=== PATIENT | female | born 1950 | race Caucasian/White ===

== ENCOUNTER 2025-03-27 09:48 | Emergency (ER) | payer MEDICARE, OTHER ==
[~2025-03-27] VITALS: Ht 162.6 cm; Wt 73.0 kg
[2025-03-27 10:04] VITALS: TEMP 98.3
--- NOTE | 2025-03-27 10:45 | Physician Documentation ---
History of Present Illness ~ Chief Complaint: Ingestion Error Stated Complaint: "DOUBLED BP MEDICATION" Time Seen by MD: 10:14 OK to notify your PCP?: Yes Primary Medical Doctor: soumya goodman Source: patient Mode of Arrival: POV Exam Limitations: no limitations HPI 74-year-old female who is here due to accidentally taking double of her metoprolol at 9:30 a.m. this morning. She states that she grabbed her bottle of metoprolol and took 100 mg of her metoprolol succinate and then she did not realize but she grabbed her bottle of metoprolol tartrate and took 100 mg of this as well. Then when she looked at the bottle she realized that she had made an air as she is only supposed to be taking metoprolol succinate. Patient is also on amlodipine, hydrochlorothiazide and losartan. Patient denies any sympto ms but she states when she realized what she did she immediately came to the emergency room. Medication Reconciliation Allergies: Uncoded Allergies: PENICILLIN (Allergy, 06/02/12) Past Medical History Past Medical History: High Cholesterol, Hypertension Other Past Family History: Colon cancer Review of Systems All Other Systems at this time: Reviewed and Negative Physical Exam Vital Signs: Temperature: 98.3, Source: Temporal, Heart Rate: 70, Respiratory Rate: 15, BP: 218/120, Pulse Oximetry: 98, Weight: 73.050 Physical Exam General Appearance: Alert, WD/WN. NAD. HEENT: NCAT, PERRL, EOMI. Neck: Supple, trachea midline. Cardiovascular: RRR. No m/r/g. Lungs: CTAB. Breathing unlabored Extremities: Normal inspection. No edema. Skin: Warm/dry, normal color Neurological: Alert and oriented x4, normal gait. Psychiatric: Affect congruent with mood. Progress Results/Orders Results/Orders Vital Signs 03/27/25 10:04 Temp 98.3 Pulse 70 Resp 15 B/P (MAP) 218/120 Pulse Ox 98 Medical Decision Making Differential Dx:Considerations: Include: Alcohol abuse, Anxiety, Bipolar disorder, Conversion disorder, Delirium, Depression, Drug Overdose-Accidental, Drug Overdose-Intentional, Encephalopathy, Hallucinations, Homicidal, Liver failure, Panic disorder, Personality disorder, Renal failure, Respiratory failure, Schizophrenia, Substance abuse, Suicidal attempt, Suidical gesture, Other Additional Comment The metoprolol tartrate is an immediate release medication and peaks within an hour and thus she is already experiencing the peak effect of this. The metoprolol succinate will peak around 7 hour jose. Patient is asymptomatic and heart rate is over 60. Considering these medications peak at different times and she has already had the peak of her metoprolol tartrate I did not feel it was necessary to monitor her for the next 7 hours. Departure Time of Disposition: 10:41 Disposition: 01 HOME / SELF CARE / HOMELESS Impression: Primary Impression: Accidental medication error Qualified Codes: T50.901A - Poisoning by unspecified drugs, medicaments and biological substances, accidental (unintentional), initial encounter Additional Impression: Hypertension Qualified Codes: I10 - Essential (primary) hypertension Condition: Stable Discharge Instructions: Overdose, Accidental Additional Instructions: Metoprolol tartrate is an immediate release medication and peaks within an hour this she is already experiencing the peak effect of this. The metoprolol succinate will peak around 7 hour jose. Patient is asymptomatic. Considering these medications peak at different times and she has already had the peak of her metoprolol tartrate I did not feel it was necessary to monitor her for the next 7 hours. WE DISCUSSED WAYS TO PREVENT THIS IN THE FUTURE AND YOU AGREED TO START USING A PILL ORGANIZER/BOX Referrals: NO PRIMARY CARE PROVIDER (PCP) Prescriptions No Active Prescriptions or Reported Meds Education Educated: Patient, Family Educated regarding: diagnosis, treatment, need for follow up Signature Scribe Signature: Justine Attestation: TING WOLFF Mar 27, 2025 10:45
[2025-03-27 10:52] VITALS: BP 171/86; PULSE 63; RESP 17; O2SAT 97
== END 2025-03-27 10:54 | disposition home or self-care (01) ==
LOC: ER 09:48
DX: T44.7X1A Poisoning by beta-adrenoreceptor antagonists, accidental (unintentional), initial encounter (principal); E78.00 Pure hypercholesterolemia, unspecified; I10 Essential (primary) hypertension; Y92.89 Other specified places as the place of occurrence of the external cause
CPT/HCPCS: 99282

== ENCOUNTER 2025-06-27 10:10 | Inpatient (IN) | payer MEDICARE, OTHER ==
[~2025-06-27] VITALS: Ht 162.6 cm; Wt 64.0 kg
--- NOTE | 2025-06-27 10:23 | Physician Documentation ---
History of Present Illness General Stated Complaint: DIZZINESS Time Seen by MD: 10:23 Primary Medical Doctor: soumya goodman History of Present Illness Initial Comments 74-year-old female complains of significant dizziness whenever she opens her eyes. The patient states symptoms started 830 this morning. The patient denies any weakness. Patient denies any history of strokes. The patient states she has been nauseous with this as well. Patient states she was in her normal state of health when this occurred. Patient's symptoms are moderate and persistent. Patient denies a headache and she denies any neck pain. Patient states she had some slight chest discomfort earlier she notes states her chest pain has now resolved. Medication Reconciliation Allergies: Coded Allergies: Penicillins (Verified Allergy, Intermediate, RASH, 06/27/25) Scheduled Amlodipine Besylate (Amlodipine Besylate), 1 TAB PO DAILY, (Reported) Atorvastatin Calcium (Atorvastatin Calcium), 1 TAB PO DAILY Levothyroxine Sodium (Levothyroxine Sodium), 175 MCG PO DAILY Lisinopril/Hydrochlorothiazide (Lisinopril-Hctz 20-12.5 mg Tab), 1 TAB PO DAILY, (Reported) Meclizine HCl (Meclizine HCl), 25 MG PO TID Metoprolol Tartrate* (Metoprolol Tartrate*), 1 TAB PO BID, (Reported) Scheduled PRN Ondansetron HCl (Ondansetron HCl), 1 TAB PO Q4HPRN PRN for nausea/vomiting Discontinued Medications Atorvastatin Calcium (Atorvastatin Calcium), 1 TAB PO QAM, (Reported) Levothyroxine Sodium (Levothyroxine Sodium), 1 TAB PO DAILY, (Reported) Past Medical History Past Medical History: High Cholesterol, Hypertension Other Past Family History: Colon cancer Review of Systems All Other Systems at this time: Reviewed and Negative Physical Exam Physical Exam Physical Exam VITALS: Reviewed and as above. GENERAL: Alert, no apparent distress. HEENT: Normocephalic, atraumatic, PERRL, EOMI, dry mucosa, no erythema RESPIRATORY: Lungs clear, normal breath sounds, no respiratory distress. CHEST: No accessory muscle use, no retractions CV: Regular rate, rhythm, no edema, no murmur, No: JVD GI: Soft, non-tender, bowels sounds present, no rebound, guarding, or rigidity BACK: No CVA tenderness, or swelling MUSCULOSKELETAL: No deformities, no edema SKIN: Warm and dry, no rash NEURO: Oriented x4, No motor or sensory deficit patient has non fatiguing right beating nystagmus extended neuro exam was unremarkable she has 5/5 strength in cerebellar functioning PSYCH: Normal mood and affect, no agitation Progress Progress Note . Patient: NILA QUIÑONES Medical Record: [id number] [facility] : 1950, Age: 74 Sex: Female Location: ER Patient Status: REG ER Service Date/Time: 06/27/251023 Ordering Physician: MONTANA WEBB MD Exam: CHEST,SINGLE VIEW CHEST RADIOGRAPH Indication: CP Technique: Single frontal view of the chest was obtained COMPARISON: None FINDINGS: Lines and Tubes: None Lungs: Clear Pleura: No effusion. No pneumothorax. Cardiomediastinal contours: Unremarkable Bones: Unremarkable IMPRESSION: 1. No acute disease. Vascular calcification of the aortic arch. Electronically Signed by:PENG PUENTES MD Date & Time: 06/27/251044 Dictated by: PENG PUENTES MD Dictation date and time: 06/27/251044 Primary Care Provider: NO PRIMARY CARE PROVIDER cc: MONTANA WEBB MD ~ Patient: NILA QUIÑONES Medical Record: [id number] [facility] : 1950, Age: 74 Sex: Female Location: ER Patient Status: REG ER Service Date/Time: 06/27/25 Ordering Physician: MONTANA WEBB MD Exam: CTA NECK/HEAD CLINICAL HISTORY: dizziness TECHNIQUE: CT angiogram of the head and neck was performed without and with intravenous contrast. 3D MIP reconstructed images were created and archived on the PACS system. This exam was performed according to our departmental dose optimization program. Up-to-date CT equipment and radiation dose reduction techniques are utilized as appropriate. CTDI 27 DLP 14 COMPARISON: CT CT HEAD on DOS: 06/27/25 FINDINGS: CTA NECK: The common carotid, internal carotid, and vertebral arteries are patent with no evidence for high grade narrowing, occlusion, and dissection. There is no significant narrowing at the carotid bulbs per NASCET criteria. CTA HEAD: The anterior and posterior intracranial circulations are intact with no evidence for high grade narrowing, occlusion, or aneurysm. There is a right posterior communicating artery. IMPRESSION: No acute CTA abnormality of the major head and neck arterial vasculature. Electronically Signed by:TAMIA TORO MD Date & Time: 06/27/25 114 Dictated by: TAMIA TORO MD Dictation date and time: 06/27/25 1143 Primary Care Provider: NO PRIMARY CARE PROVIDER cc: MONTANA WEBB MD ~ Results/Orders Results/Orders Orders - MONTANA WEBB MD Chest,Single View (06/27/25 10:24) Saline Lock (06/27/25 10:24) Monitor (06/27/25 10:24) Ct Head (06/27/25 ) Cta Neck/Head (06/27/25 ) Page Hospitalist (06/27/25 12:09) Fill Out Med Reconciliation (06/27/25 12:09) Completed Orders - MONTANA WEBB MD Cbc/Diff (06/27/25 10:24) MG (06/27/25 10:24) Electrocardiogram (06/27/25 10:24) PBNP (06/27/25 10:24) Chest,Single View (06/27/25 10:24) BMP (06/27/25 10:24) Hs Troponin I W Calculations (06/27/25 10:24) Hs Troponin I W Calculations (06/27/25 12:24) Hs Troponin I W Calculations (06/27/25 13:24) Diazepam Inj (Valium Inj) (06/27/25 10:35) Ondansetron Inj. (Zofran 4mg/2ml Vial) (06/27/25 10:35) Meclizine Tablets (Antivert Tablet) (06/27/25 10:35) Ct Head (06/27/25 ) Cta Neck/Head (06/27/25 ) Iohexol 350mg/Ml 100ml (Omnipaque 350mg/ (06/27/25 10:44) Potassium Cl Sr Tablet (K-Dur Tablet) (06/27/25 12:05) Potassium Cl Sr Tablet (K-Dur Tablet) (06/27/25 12:05) Magnesium Cl Er Tablet (Slow-Mag Tablet) (06/27/25 12:05) Magnesium Sulf-Water 2g/50ml (Magnesium (06/27/25 12:05) Magnesium Sulf-Water 4g/100ml (Magnesium (06/27/25 12:05) Potassium Cl 40meq/1/2ns 520ml ([place] (06/27/25 12:05) K And/Or Mag Replacement (K And/Or Mag R (06/27/25 20:00) Hgb A1c (06/27/25 10:34) Lipid Panel (06/27/25 10:34) PHOS (06/27/25 10:34) Vital Signs 06/27/25 06/27/25 06/27/25 06/27/25 10:15 10:30 10:46 10:55 Temp 97.7 Pulse 77 74 Resp 16 15 16 11 B/P (MAP) 178/81 185/96 (125) Pulse Ox 100 97 O2 Flow Rate 0 Laboratory Tests Test 06/27/25 10:34 White Blood Count 5.4 Red Blood Count 4.37 Hemoglobin 13.6 Hematocrit 39.5 Mean Corpuscular Volume 90.4 Mean Corpuscular Hemoglobin 31.0 Mean Corpuscular Hemoglobin Concent 34.4 Red Cell Distribution Width 13.5 Platelet Count 354 Mean Platelet Volume 7.7 Neutrophils (%) (Auto) 51.5 Lymphocytes (%) (Auto) 40.8 Monocytes (%) (Auto) 3.4 Eosinophils (%) (Auto) 3.5 Basophils (%) (Auto) 0.8 Neutrophils # (Auto) 2.8 Lymphocytes # (Auto) 2.2 Monocytes # (Auto) 0.2 Eosinophils # (Auto) 0.2 Basophils # (Auto) 0.0 CBC Comment Prothrombin Time 9.8 INR International Normalized Ratio 1.0 Activated Partial Thromboplast Time 22 Coagulation Comments Sodium Level 140 Potassium Level 2.9 *L Chloride Level 103 Carbon Dioxide Level 24.2 Anion Gap 13 Blood Urea Nitrogen 17 Creatinine 0.86 Estimated GFR/1.73 m2 65 BUN/Creatinine Ratio 19.8 Glucose Level 165 H Hemoglobin A1c 5.7 Calcium Level 9.2 Phosphorus Level 1.8 L Magnesium Level 1.6 Troponin I High Sensitivity 5 Pro-B-Type Natriuretic Peptide 32 Albumin 3.6 Triglycerides Level 120 Cholesterol Level 237 H LDL Cholesterol 138 H HDL Cholesterol 63 H Cholesterol/HDL Ratio 3.8 Chemistry Comments Medical Decision Making Findings The patient's EKG was interpreted by me as showing a sinus rhythm with a normal axis and a right bundle branch block and nonspecific ST abnormalities. The patient's rate was 72 beats per minute. The patient's EKG was interpreted at 10:19 a.m.. The patient presented with significant non fatiguing nystagmus, and elevated blood pressure. Do this patient has a CT CTA of the head which did not show any significant polyp pathology did neurology was also consulted they are recommending patient be admitted for her completion of the stroke workup patient's symptoms have improved. There were no other focal neurologic f indings. The patient's pulse oximetry was interpreted as normal and adequate the patient patient's prior hospitalizations have been reviewed. The patient's tube builder was interpreted as a sinus rhythm the patient was discussed with the hospitalist as well as the neurologist patient will be admitted Departure Admitted to Inpatient Unit: to hospitalist Impression: Primary Impression: Dizziness Additional Impressions: Vertigo Hypertension Qualified Codes: I10 - Essential (primary) hypertension Hypokalemia Referrals: NO PRIMARY CARE PROVIDER (PCP) Prescriptions Ondansetron HCl (Ondansetron HCl) 4 Mg Tablet 1 TAB PO Q4HPRN PRN for nausea/vomiting for 3 Days, #18 TAB 0 Refills Prov: GEMINI PALENCIA RES 06/28/25 Levothyroxine Sodium (Levothyroxine Sodium) 125 Mcg Tablet 175 MCG PO DAILY for 30 Days, #30 TAB Take levothyroxine 175mcg po before breakfast on empty stomach Prov: GEMINI PALENCIA RES 06/28/25 Atorvastatin Calcium (Atorvastatin Calcium) 80 Mg Tablet 1 TAB PO DAILY for 30 Days, #30 TAB 0 Refills Prov: GEMINI PALENCIA RES 06/28/25 Meclizine HCl (Meclizine HCl) 12.5 Mg Tablet 25 MG PO TID for dizziness for 30 Days, #90 TAB 0 Refills Prov: GEMINI PALENCIA RES 06/28/25 Signature Scribe Signature: no scribe Attestation: The note accurately reflects work and decisions made by me.Montana Webb MD 07/01/25 07:51 MONTANA WEBB MD Jun 27, 2025 10:23
--- NOTE | 2025-06-27 10:26 | ELECTROCARDIOGRAPH REPORT ---
[facility] Test Date: 2025-06-27 Test Time: 10:19:04 Pat Name: NILA QUIÑONES Department: EMERGENCY ROOM Room: Gender: F [employer] Head: CORNELIUS : 1950 Requested By: MONTANA NOLASCO Order Number: [id number] Reading MD: Measurements Intervals [place] Rate: 72 P: 59 IL: 166 QRS: 40 QRSD: 175 T: -29 QT: 486 QTc: 532 Interpretive Statements Sinus rhythm Right bundle branch block Please click the below link to view image of tracing.
[2025-06-27] MEDS: diazepam inj 5 MG/ML inj. IV ONE (10:46)
--- NOTE | 2025-06-27 10:47 | RADIOLOGY REPORT ---
CHEST RADIOGRAPH Indication: CP Technique: Single frontal view of the chest was obtained COMPARISON: None FINDINGS: Lines and Tubes: None Lungs: Clear Pleura: No effusion. No pneumothorax. Cardiomediastinal contours: Unremarkable Bones: Unremarkable IMPRESSION: 1. No acute disease. Vascular calcification of the aortic arch.
[2025-06-27] MEDS: ondansetron/PF 4mg/2ml inj IV ONE (10:54)
[2025-06-27 11:02] LABS: MEAN PLATELET VOLUME 7.7 FL (7.4-10.4); RED CELL DISTRIBUTION WIDTH 13.5 % (11.5-14.5)
[2025-06-27 11:21] LABS: CREATININE 0.86 MG/DL (0.40-0.90); PRO BRAIN NATRIURETIC PEPTIDE 32 PG/ML (0-125); TOTAL CARBON DIOXIDE 24.2 MMOL/L (24-32); eCRCL 50 ML/MIN; eGFR 65 ML/MIN
--- NOTE | 2025-06-27 11:33 | RADIOLOGY REPORT ---
CLINICAL HISTORY: dizziness TECHNIQUE: Helical scanning was performed of the head from the skull base to the vertex. Multiplanar reconstructions were performed. This exam was performed according to our departmental dose optimization program. Up-to-date CT equipment and radiation dose reduction techniques are utilized as appropriate. CTDI 63 DLP 1238 COMPARISON: CT CTA NECK/HEAD on DOS: 06/27/25 FINDINGS: There is no evidence for acute intracranial hemorrhage, acute ischemic changes, mass, mass effect, or extra-axial fluid collection. There is no hydrocephalus or midline shift. There is no effacement of the cerebral sulci and basal subarachnoid cisterns. The lizama-white matter differentiation is well maintained. There is mild brain volume loss and minimal chronic small vessel ischemic change. There has been bilateral cataract extraction. The imaged paranasal sinuses are clear. IMPRESSION: NO ACUTE INTRACRANIAL ABNORMALITY SEEN.
--- NOTE | 2025-06-27 11:45 | RADIOLOGY REPORT ---
CLINICAL HISTORY: dizziness TECHNIQUE: CT angiogram of the head and neck was performed without and with intravenous contrast. 3D MIP reconstructed images were created and archived on the PACS system. This exam was performed according to our departmental dose optimization program. Up-to-date CT equipment and radiation dose reduction techniques are utilized as appropriate. CTDI 27 DLP 14 COMPARISON: CT CT HEAD on DOS: 06/27/25 FINDINGS: CTA NECK: The common carotid, internal carotid, and vertebral arteries are patent with no evidence for high grade narrowing, occlusion, and dissection. There is no significant narrowing at the carotid bulbs per NASCET criteria. CTA HEAD: The anterior and posterior intracranial circulations are intact with no evidence for high grade narrowing, occlusion, or aneurysm. There is a right posterior communicating artery. IMPRESSION: No acute CTA abnormality of the major head and neck arterial vasculature.
[2025-06-27] MEDS ORDERED: magnesium Cl slow-release 64mg tablet PO PRN ×2 (12:05→12:40)
[2025-06-27] MEDS ORDERED: potassium Cl 40MEQ/1/2NS 520ml 520 ML IV PRN ×2 (12:05→12:40)
[2025-06-27] MEDS ORDERED: potassium Cl 20 mEq SR tablet PO PRN ×3 (12:05→12:40)
[2025-06-27] MEDS ORDERED: magnesium sulf-water 2g/50mL 50 ML IV PRN ×3 (12:05→12:40)
[2025-06-27] MEDS ORDERED: magnesium sulf-water 4G/100mL 100 ML IV PRN ×3 (12:05→12:40)
--- NOTE | 2025-06-27 12:11 | [facility] CONSULT REPORT ---
[facility] Procedure Note [facility] Procedure Note Consult [facility] Note # Demographics Consult Type: General Neurology Patient Location: Emergency Room First Name: NILA Last Name: ISHMAEL Date of : 1950 Age: 74 Gender: Female Facility: [facility] Time of Initial Page (): 06/27/2025 11:27 First Contact with Site (): 06/27/2025 11:27 # HPI Chief Complaint: - dizziness History: 74 yo F p/w dizziness and unsteady gait since this morning. She woke up normal and symptoms started around 930 AM. She reported room spinning sensation with nausea, any head movement makes her symptoms worse. R beating nystagmus was observed in the ER initially and improved after Valium. Last Known Normal: - I have collected independent history specific to time last normal or last known well. We have collaborated with the provider and at this time, we have the most current timeline with the information that is available. 930 # Scores Level of Consciousness 1a: [0] = Alert; keenly responsive LOC Questions 1b: [0] = Answers both questions correctly LOC Commands 1c: [0] = Performs both tasks correctly Best Gaze 2: [0] = Normal Visual 3: [0] = No visual loss Facial Palsy 4: [0] = Normal symmetrical movements Motor Arm Left 5a: [0] = No drift Motor Arm Right 5b: [0] = No drift Motor Leg Left 6a: [0] = No drift Motor Leg Right 6b: [0] = No drift Limb Ataxia 7: [0] = Absent Sensory 8: [0] = Normal Best Language 9: [0] = No aphasia Dysarthria 10: [0] = Normal Extinction and Inattention 11: [0] = No abnormality NIHSS Total: 0 # ROS Additional: - complete review of systems otherwise negative # PMH-FH-SH Past Medical History: - hypertension # Data Head CT: - no bleed CTA Head: no large vessel occlusion # Assessment Impression: - Vertigo # Plan Thrombolytic/Intervention: NOT IV Thrombolysis or IA Intervention candidate Thrombolytic Exclusion (< 3 hour window): - NIHSS = 0 Intraarterial Exclusion: - no large vessel occlusion (LVO) Imaging: (urgency: routine): - MRI Brain without contrast Therapy/Evaluation: - PT evaluation For Elana maneuver Medication: Meclizine 25 mg TID Valium 5 mg TID PRN Antiemetics PRN Other: - If patient has any neurological deterioration please call me back immediately - would not pursue stroke work-up if MRI is negative - I have discussed my recommendations with the referring provider # Logistics Attestation of consult completion: The patient is located at: [facility]. Facility staff participated in the visit. I performed this telemedicine visit from my offsite office utilizing interactive 2 way audio and visual telecommunication technology at the request of the onsite emergency room provider. Total time spent in telemedicine encounter: I spent 23 minutes reviewing clinical data and/or imaging, obtaining history, examining the patient, communicating with the onsite care team, and in preparation of this report. # Demographics First Name: NILA Last Name: ISHMAEL Facility: [facility] Electronically signed at 06/27/2025 12:10 (Hayden Time) by Audrey Prado MD Neuro Consult Order placed for: Yes AUDREY PRADO MD Jun 27, 2025 12:11
[2025-06-27] MEDS ORDERED: morphine 4 MG/ML inj SYRINge IV PRN (12:40)
[2025-06-27] MEDS ORDERED: HYDROmorphone/PF 0.2 MG/ML SYRINGE IV PRN (12:40)
[2025-06-27] MEDS ORDERED: magnesium hydroxide 30ml (MOM) UD suspension PO PRN ×2 (12:40)
[2025-06-27] MEDS ORDERED: mag hydrox/Alum hydrox/simeth 30ml oral suspension PO PRN ×2 (12:40)
[2025-06-27] MEDS ORDERED: ondansetron/PF 4mg/2ml inj IV PRN ×2 (12:40)
[2025-06-27 13:00] LABS: APTT 22 SECONDS (22-32); CHOL/HDL RATIO 3.8 (0.00-4.99); INR 1.0 INR; LDL CHOLESTEROL 138 MG/DL (50-100); PHOSPHORUS 1.8 MG/DL (2.3-4.5)
[2025-06-27] MEDS: PERFLUTREN PROTEIN-A MICROSPHR (Optison) 0.22 MG/ML 3ML VIAL IV ONE (13:18)
[2025-06-27] MEDS: normal saline 1000ml 1,000 ML IV SCH (13:34)
[2025-06-27] MEDS ORDERED: hydrALAZINE 20mg/ml inj. IV PRN (14:35)
--- NOTE | 2025-06-27 14:57 | HISTORY AND PHYSICAL-Residence ---
History & Physical Providers to CC Resident Creating Document: KIM PATEL, RES CC: ROMULO DOW DO ~ History of Present Illness Primary Medical Doctor: soumya goodman Reason for Admit\Complaint: Dizziness , hypertensive emergency History of Present Illness This is a 74-year-old female patient with past medical history of hypertension,hyperlipidemia hypothyroidism status post thyroidectomy and depression presented to the ED with chief complaints of dizziness and feeling unsteady since yesterday. She had one episode of dizziness yesterday and had another episode this morning. Patient stated that she denied any fall or any syncopal attack. However, in the ED she was noted to have R beating nystagmus was observed in the ER initially and improved after Valium. Patient lives alone in her house primary care doctor: [facility] Patient normally ambulates on her own; uses a cane very rarely Allergies: Coded Allergies: Penicillins (Verified Allergy, Intermediate, RASH, 06/27/25) Home Medications Home Medications Active No Active Prescriptions or Reported Medications Past Medical History Past Medical History Depression Hypertension Hyperlipidemia Iatrogenic hypothyroidism Past Surgical History Surgical History Comment Complete thyroidectomy Arthroscopic left knee surgery Hysterectomy Family History Family History: FH: hypertension FATHER sister Past Social History Social History Comment Patient denies any smoking history, illicit drug use Patient drinks alcohol occasionally; had a very small glass of wine yesterday ROS All Other Systems: Reviewed and Negative ROS Constitutional: No fever, dizziness,weakness, no decrease in appetite HEENT: Normal vision. No sore throat, epistaxis, tinnitus Cardiovascular: No chest pain/discomfort, palpitations, syncope. no pedal edema Respiratory: No sob, cough,hemoptysis Gastrointestinal: No abdominal pain, nausea, vomiting. No diarrhea, melena. Genitourinary: No frquency, urgency, incontinence, nocturia. No dysuria, hematuria Musculoskeletal: Normal, no pains Endocrine: No fatigue, polydipsia, polyuria. No heat or cold intolerance Neurologic: No headache, vertigo. No weakness, numbness or tingling of extremities Psychiatric: No hallucinations/delusions, no anhedonia, no suicidal ideation Hematologic: No bruises Exam Vitals: Vital Signs Date Time Temp Pulse Resp B/P (MAP) Pulse Ox O2 Delivery O2 Flow Rate FiO2 06/27/25 14:19 85 15 142/123 (129) 100 0 06/27/25 10:15 97.7 General: General: Awake, oriented to person, place and time HEENT: Conjunctive are pink, sclerae clear, no icterus, pupil is equal in both sides, reactive to light, no ear discharge, no pharyngeal erythema or an edema. Neck: Supple, no JVD, no lymphadenopathy and thyromegaly. Chest: Equal air entry on both lungs, no additional sounds no rhonchi no wheezing at the moment. Cardiovascular: S1-S2 regular sinus rhythm and, regular rate, no gallops, no rubs, no murmurs Abdomen: No visible peristalsis, Bowel sounds present on auscultation, soft, no tenderness, no guarding, no rigidity Extremities: No obvious deformities, no pitting edema bilaterally, capillary refill intact, peripheral pulsations are intact on both sides Neurologic: Mental status: alert and conscious, oriented to place, person and time, preserved memory, normal speech. Cranial nerves I-XII: Normal. Motor system: Preserved power, coordination, no evidenced involuntary movements, strength 5/5 in four extremities. Sensory system: Preserved temperature, pain and vibration sensation. 2+ deep tendon reflexes in biceps, triceps, quadriceps. Negative Babinski. Cerebellar: No nystagmus, dysdiadochokinesia, normal [id number] testing. Musculoskeletal: No joint swelling, deformities, inflammations, and no scoliosis and back tenderness Skin: Warm and dry. Dry oral mucosa. Diagnostic Data Last Recorded Lab Results: 06/27/25 1034 06/27/25 1034 Diagnostic Data: Laboratory Tests Test 06/27/25 10:34 Prothrombin Time 9.8 SECONDS (9.0-12.0) INR International Normalized Ratio 1.0 INR Activated Partial Thromboplast Time 22 SECONDS (22-32) Coagulation Comments Advance Care Planning Advanced Care plannin - 30 Minutes (With the patient in length about advanced care planning, patient is said she wants to be full code) Additional Plan Essential Hypertension with a hypertensive emergency CVA workup NIHSS score of 0 On arrival patient's blood pressure was elevated at 178/81mmhg CT head negative for any acute intracranial abnormal CTA head no large vessel occlusion was noted Teleneurologist consulted Plan Patient was given amlodipine 10 mg which did decrease her blood pressure a little Added hydralazine 10 mg q.6h p.r.n. MRI head without contrast ordered Fall precautions in place, [facility] ordered Physical therapy ordered Dizziness Differentials: Vertigo, orthostasis, age-related autonomic neuropathy, possible medication use Patient had an episode of dizziness today associated with spinning of the room any head movement makes her symptoms worse; did not lose consciousness or syncope attack; R 18 nystagmus ultrasound in the ER initially which improved after Valium Patient also had a positive nystagmus as per teleneurologist, which resolved most likely CT head: Negative for acute intracranial pathology No seizure activity and no trauma Plan: Continue meclizine 25 mg t.i.d. Valium 5 mg t.i.d. p.r.n.;as per neurologist; Gentle IV hydration with normal saline 100 cc/hour Continuous telemetry while inpatient to detect acute arrhythmias. Orthostatic vitals ordered Monitor for symptoms with position change MRI brain ordered to rule out central cause of dizziness/stroke Fall precautions in place Physical therapy evaluation for Elana maneuver Hypokalemia Patient's potassium on arrival was at 2.9 ECG did not show any changes of hypokalemia Potassium replacement protocol in place Hypothyroidism Patient has a history thyroidectomy Home medication levothyroxine 125 mcg Ordered TSH Awaiting med rec Depression Awaiting med rec Hyperlipidemia Patient stated that she has a history of hyperlipidemia; Hemoglobin A1c is 5.7 Total cholesterol is 237 with an LDL of 138 and HDL 63 Start 80 mg of atorvastatin and awaiting med reconciliation Code Status: Full code DVT Prophylaxis: Lovenox Lines/Tubes: PIV Nutrition: NPO till patient's passes bedside swallow test PT: Yes Prognosis: Guarded Disposition: We will continue to monitor the patient; f/u with echocardiogram. Kim Patel MD Internal medicine resident,PGY-1 I spent a total of 17 minutes on reviewing various resuscitative measures/ ACP with the patient at the time of admission. The patient has decided on a full code status. Date of Service: Jun 27, 2025 Billing Provider: ROMULO DOW DO Common Visit Codes: 23569-[id number] INP/OBS CARE (HIGH) Secondary Visit Codes: 07768-[id number] CARE PLAN 30 MINUTES KIM PATEL, RES Jun 27, 2025 14:57 ROMULO DOW DO Jun 27, 2025 18:34
[2025-06-27] MEDS: enoxaparin 40mg/0.4ml syringe SUBCUT SCH (15:30)
[2025-06-27 16:32] LABS: LEUKOCYTE ESTERASE ,URINE NEGATIVE (Neg); NITRITES, URINE NEGATIVE (Neg); OCCULT BLOOD,URINE NEGATIVE (Neg)
[2025-06-27 16:37] LABS: UA COLLECTION TYPE CLN CATCH MIDSTREAM
[2025-06-27] MEDS: potassium Cl 40MEQ/1/2NS 520ml 520 ML IV PRN (18:38)
[2025-06-27] MEDS: potassium Cl 20 mEq SR tablet PO PRN (18:41)
[2025-06-27 20:00] VITALS: BP 166/71; PULSE 96
[2025-06-27] MEDS ORDERED: docusate sod 100mg capsule PO SCH (20:00)
[2025-06-27] MEDS ORDERED: K and/or MAG REPLACEMENT MC SCH (20:00)
[2025-06-27] MEDS: K and/or MAG REPLACEMENT MC SCH (20:00)
[2025-06-27 21:55] VITALS: BP 167/88; PULSE 89; RESP 12; TEMP 98.1; O2SAT 99
--- NOTE | 2025-06-27 22:01 | RADIOLOGY REPORT ---
EXAM: MR MRI HEAD HISTORY: to rule out stroke TECHNIQUE: Multiplanar and multisequence MR imaging of the head was performed. COMPARISON: CT CTA NECK/HEAD on DOS: 06/27/25, CT CT HEAD on DOS: 06/27/25 FINDINGS /impression: Examined examination is limited as the patient did not complete the entire examination and only diffusion-weighted images were performed. No acute or recent infarct.
--- NOTE | 2025-06-27 23:20 | CARDIOLOGY REPORT ---
APPROVED REPORT EXAM: Comprehensive 2D, Doppler, and color-flow Echocardiogram. Patient Location: ED 9 Heart Rate: 70's bpm Rhythm: SINUS Indications HYPERTENSION DIZZINESS Immigration Paralegal: NONE Previous echo: NONE 2D Dimensions RVDd 3.1 cm LA Diam 3.9 cm IVSd 1.1 (0.7-1.1cm) LVDd 3.5 cm PWd 1.2 (0.7-1.1cm) IVSs 1.5 (0.8-1.2cm) LVDs 2.3 (2.5-4.0cm) PWs 1.4 (0.8-1.2cm) LVOT Diameter 1.96 (1.8-2.4cm) LVEF(%) 64.6 (>50%) IVC 15.38 mm FS (%) 34.5 % SV 32.4 ml CO 2.5 L/min M-Mode Dimensions Aortic Root 2.98 (2.2-3.7cm) Aortic Cusp Exc 1.83 (1.5-2.0cm) MV EPSS 0.4 (<0.5cm) Aortic Valve AoV Peak Carter. 173.7 cm/s AoV VTI 39.8 cm AO Peak GR. 12.1 mmHg AO Mean GR. 7 mmHg LVOT VTI 29.11 cm LVOT Peak Carter. 126.4 cm/s DERICK(VTI)/BSA 2.20 cm2/m2 DERICK (VTI) 2.20 cm2 AV DI 0.73 % Mitral Valve MV E Velocity 69.8 cm/s MV Peak Gr. 3 mmHg MV DECEL TIME 188 ms MV A Velocity 116.7 cm/s MV PHT 56 ms E/A Ratio 0.6 MVA (PHT) 3.93 cm2 MV VMax 80.2 cm/s TDI Lateral E' P. V 7.95 cm/s E/Lateral E' 8.8 Tricuspid Valve TR P. Velocity 215 cm/s RAP ESTIMATE 10 mmHg TR Peak Gr. 18 mmHg RVSP 28 mmHg LEFT VENTRICLE Normal LV size and wall thickness. Overall systolic function is normal. LVEF is 60-65%. RIGHT VENTRICLE RV is normal size and function. ATRIA The left atrium size is normal. AORTIC VALVE Trileaflet AV appears mildly sclerotic without stenosis. Trivial insufficiency. MITRAL VALVE Mild MV annular calcification without stenosis. Trace regurgitation. TRICUSPID VALVE TV appears structurally normal with trace regurgitation. PULMONIC VALVE Normal PV without stenosis, physiologic insufficiency. GREAT VESSELS The aortic root is normal in size. IVC is normal in size and collapses greater than 50% with inspiration. PERICARDIUM Normal pericardium. No effusion. Other Information Study Quality: Adequate Conclusion Normal LV size and wall thickness. Overall systolic function is normal. LVEF is 60-65%. RV is normal size and function. The left atrium size is normal. Trileaflet AV appears mildly sclerotic without stenosis. Trivial insufficiency. Mild MV annular calcification without stenosis. Trace regurgitation. TV appears structurally normal with trace regurgitation. Normal pericardium. No effusion.
[2025-06-27] MEDS: docusate sod 100mg capsule PO SCH (23:48)
[2025-06-27] MEDS ORDERED: METO50TA17 PO (23:58)
[2025-06-27] MEDS ORDERED: LEVO125T8 PO (23:58)
[2025-06-27] MEDS ORDERED: LISI1TAB51 PO (23:58)
[2025-06-27] MEDS ORDERED: AMLO5TAB16 PO (23:58)
[2025-06-27] MEDS ORDERED: ATOR20TA66 PO (23:58)
[2025-06-28 06:00] VITALS: BP 120/70; PULSE 72; RESP 14; TEMP 98.1; O2SAT 96
[2025-06-28 08:51] LABS: MEAN PLATELET VOLUME 7.7 FL (7.4-10.4); RED CELL DISTRIBUTION WIDTH 13.6 % (11.5-14.5)
[2025-06-28 09:19] LABS: CREATININE 0.71 MG/DL (0.40-0.90); TOTAL CARBON DIOXIDE 28.7 MMOL/L (24-32); eCRCL 60 ML/MIN; eGFR 80 ML/MIN
[2025-06-28 10:19] VITALS: BP 130/73; PULSE 74; RESP 16; TEMP 98.6; O2SAT 100
[2025-06-28 11:54] VITALS: BP_SYST 138; BP_SYST 146; BP_SYST 160; BP_DIAS 77; BP_DIAS 80; BP_DIAS 90; PULSE 63; PULSE 67; PULSE 73; PULSE 77
[2025-06-28 12:46] VITALS: BP 127/71; PULSE 61; RESP 14; O2SAT 97
--- NOTE | 2025-06-28 14:32 | DISCHARGE SUMMARY-Residence ---
Discharge Summary Providers to CC Resident Creating Document: SOILA PATEL, HUMA CC: ROMULO DOW DO ~ Discharge Summary Admission Diagnosis: DIZZINESS,VERTIGO,HYPERTENSION Hospital Course DATE OF ADMISSION: 06/27/25 DATE OF DISCHARGE: 06/28/25 Discharge Diagnosis\Comment: Essential Hypertension with a hypertensive emergency Dizziness likely 2/2 BPPV Hypokalemia Hypothyroidism Depression Hyperlipidemia Operations\Procedures: None Consultants: [facility] neurologist- Dr.Jingxin Mahesh GARRETT Complications: None Condition on DC: Stable New Medications: Atorvastatin Calcium (Atorvastatin Calcium) 80 Mg Tablet 1 TAB PO DAILY for 30 Days, #30 TAB 0 Refills Levothyroxine Sodium (Levothyroxine Sodium) 125 Mcg Tablet 175 MCG PO DAILY for 30 Days, #30 TAB Take levothyroxine 175mcg po before breakfast on empty stomach Meclizine HCl (Meclizine HCl) 12.5 Mg Tablet 25 MG PO TID for dizziness for 30 Days, #90 TAB 0 Refills Ondansetron HCl (Ondansetron HCl) 4 Mg Tablet 1 TAB PO Q4HPRN PRN for nausea/vomiting for 3 Days, #18 TAB 0 Refills Continued Medications: Amlodipine Besylate (Amlodipine Besylate) 5 Mg Tablet 1 TAB PO DAILY Lisinopril/Hydrochlorothiazide (Lisinopril-Hctz 20-12.5 mg Tab) 20 Mg-12.5 Mg Tablet 1 TAB PO DAILY Metoprolol Tartrate* (Metoprolol Tartrate*) 50 Mg Tablet 1 TAB PO BID Discontinued Medications: Atorvastatin Calcium (Atorvastatin Calcium) 20 Mg Tablet 1 TAB PO QAM Levothyroxine Sodium (Levothyroxine Sodium) 125 Mcg Tablet 1 TAB PO DAILY Discharge Summary: HPI as per admitting physician This is a 74-year-old female patient with past medical history of hypertension,hyperlipidemia hypothyroidism status post thyroidectomy and depression presented to the ED with chief complaints of dizziness and feeling unsteady since yesterday. She had one episode of dizziness yesterday and had another episode this morning. Patient stated that she denied any fall or any syncopal attack. However, in the ED she was noted to have R beating nystagmus was observed in the ER initially and improved after Valium. Patient lives alone in her house primary care doctor: [facility] Patient normally ambulates on her own; uses a cane very rarely Hospital course a 74-year-old female patient with past medical history of hypertension,hyperlipidemia hypothyroidism status post thyroidectomy and depression presented to the ED with chief complaints of dizziness and feeling unsteady. She had two episodes of dizziness; patient also had elevated blood pressure on presentation at 178/81mmhg patient also was noted to have right beating nystagmus in the ER, patient was given amlodipine 10 mg we stabilized her blood pressure; tele neurology was consulted and her NIHSS score was 0 at initial assessment; neurology recommended MRI head without contrast and added meclizine 25 mg t.i.d. and Valium 5 mg t.i.d. as per neurologist for her vertigo. Complete stroke workup was done to rule out any acute ischemic stroke; CT head was negative for any acute intracranial abnormality MRI head was done which was inconclusive as patient was hypersensitive to sounds and could not cooperate well. We initiated the patient with IV fluids to help with her dizziness as well and monitor orthostatic vitals with telemetry in place. Presentation patient's potassium was low at 2.9, ECG did not show any hypokalemic changes; when we replace patient's potassium as per replacement protocol. Patient also has a history of thyroidectomy, TSH during this admission was mildly elevated at 13; she normally takes levothyroxine 125 mcg, we are increasing her levothyroxine medication to 150 mcg on discharge. Recommended patient to follow up with her primary care doctor. Patient's lipid profile demonstrated a total cholesterol of 237 and an LDL of 138 and HDL of 63; increased her atorvastatin 80 mg; this could be possibly due to her increased TSH level as well. Patient would benefit from a follow up with the primary care doctor in titrating the dosages of both the medications. Significant imaging Head CT 06/27/2025 NO ACUTE INTRACRANIAL ABNORMALITY SEEN. Head/neck CTA 06/27/2025 No acute CTA abnormality of the major head and neck arterial vasculature. Chest x-ray 06/27/2025 No acute disease. Vascular calcification of the aortic arch. Echocardiogram 06/27/2025 Normal LV size and wall thickness. Overall systolic function is normal. LVEF is 60-65%. RV is normal size and function. The left atrium size is normal. Trileaflet AV appears mildly sclerotic without stenosis. Trivial insufficiency. Mild MV annular calcification without stenosis. Trace regurgitation. TV appears structurally normal with trace regurgitation. Normal pericardium. No effusion. MRI head 06/27/2025 Examined examination is limited as the patient did not complete the entire examination and only diffusion-weighted images were performed. No acute or recent infarct. Patient recovered earlier than expected and patient felt she was stable. PT worked with the patient,they deemed she was home independent. Patient is medically cleared to be discharged home Physical examination the time of discharge General: Awake, oriented to person, place and time HEENT: Conjunctive are pink, sclerae clear, no icterus, pupil is equal in both sides, reactive to light, no ear discharge, no pharyngeal erythema or an edema. Neck: Supple, no JVD, no lymphadenopathy and thyromegaly. Chest: Equal air entry on both lungs, no additional sounds no rhonchi no wheezing at the moment. Cardiovascular: S1-S2 regular sinus rhythm and, regular rate, no gallops, no rubs, no murmurs Abdomen: No visible peristalsis, Bowel sounds present on auscultation, soft, no tenderness, no guarding, no rigidity Extremities: No obvious deformities, no pitting edema bilaterally, capillary refill intact, peripheral pulsations are intact on both sides Neurologic: Mental status: alert and conscious, oriented to place, person and time, preserved memory, normal speech. Cranial nerves I-XII: Normal. Motor system: Preserved power, coordination, no evidenced involuntary movements, strength 5/5 in four extremities. Sensory system: Preserved temperature, pain and vibration sensation. 2+ deep tendon reflexes in biceps, triceps, quadriceps. Negative Babinski. Cerebellar: No nystagmus, dysdiadochokinesia, normal [id number] testing. Musculoskeletal: No joint swelling, deformities, inflammations, and no scoliosis and back tenderness Skin: Warm and dry. Dry oral mucosa. Vital Signs Date Time Temp Pulse Resp B/P (MAP) Pulse Ox O2 Delivery O2 Flow Rate FiO2 06/28/25 12:46 61 14 127/71 (89) 97 Room Air 06/28/25 10:19 98.6 06/27/25 15:17 1.0 Laboratory Tests Test 06/27/25 10:34 06/27/25 12:43 06/27/25 13:23 06/27/25 15:32 White Blood Count 5.4 X10'3 Red Blood Count 4.37 X10'6 Hemoglobin 13.6 g/dl Hematocrit 39.5 % Mean Corpuscular Volume 90.4 FL Mean Corpuscular Hemoglobin 31.0 PG Mean Corpuscular Hemoglobin Concent 34.4 g/dL Red Cell Distribution Width 13.5 % Platelet Count 354 X10'3 Mean Platelet Volume 7.7 FL Neutrophils (%) (Auto) 51.5 % Lymphocytes (%) (Auto) 40.8 % Monocytes (%) (Auto) 3.4 % Eosinophils (%) (Auto) 3.5 % Basophils (%) (Auto) 0.8 % Neutrophils # (Auto) 2.8 X10'3 Lymphocytes # (Auto) 2.2 X10'3 Monocytes # (Auto) 0.2 X10'3 Eosinophils # (Auto) 0.2 X10'3 Basophils # (Auto) 0.0 X10'3 CBC Comment Prothrombin Time 9.8 SECONDS INR International Normalized Ratio 1.0 INR Activated Partial Thromboplast Time 22 SECONDS Coagulation Comments Sodium Level 140 MMOL/L Potassium Level 2.9 MMOL/L Chloride Level 103 MMOL/L Carbon Dioxide Level 24.2 MMOL/L Anion Gap 13 Blood Urea Nitrogen 17 MG/DL Creatinine 0.86 MG/DL Estimated GFR/1.73 m2 65 ML/MIN BUN/Creatinine Ratio 19.8 Glucose Level 165 MG/DL Hemoglobin A1c 5.7 % Calcium Level 9.2 MG/DL Phosphorus Level 1.8 MG/DL Magnesium Level 1.6 MG/DL Troponin I High Sensitivity 5 ng/L 6 ng/L 5 ng/L Pro-B-Type Natriuretic Peptide 32 PG/ML Albumin 3.6 G/DL Triglycerides Level 120 MG/DL Cholesterol Level 237 MG/DL LDL Cholesterol 138 MG/DL HDL Cholesterol 63 MG/DL Cholesterol/HDL Ratio 3.8 Chemistry Comments Troponin I High Sens Percent Delta 20 % 16 % Troponin I Hi Sens Absolute Change 1 ng/L -1 ng/L Urine Specimen Description Cln catch midstream Urine Color Straw Urine Clarity Clear Urine pH 8.0 Urine Specific [place] 1.010 Urine Protein Negative mg/dl Urine Glucose (UA) Negative mg/dl Urine Ketones Negative mg/dl Urine Occult Blood Negative Urine Nitrite Negative Urine Bilirubin Negative Urine Urobilinogen 0.2 E.U/dL Urine Leukocyte Esterase Negative Urine Culture Indicated Not ind Volume Urine Centrifuged 10 ml Urine Comment Test 06/28/25 08:02 White Blood Count 4.8 X10'3 Red Blood Count 3.91 X10'6 Hemoglobin 12.3 g/dl Hematocrit 36.1 % Mean Corpuscular Volume 92.3 FL Mean Corpuscular Hemoglobin 31.5 PG Mean Corpuscular Hemoglobin Concent 34.1 g/dL Red Cell Distribution Width 13.6 % Platelet Count 302 X10'3 Mean Platelet Volume 7.7 FL Neutrophils (%) (Auto) 58.6 % Lymphocytes (%) (Auto) 30.0 % Monocytes (%) (Auto) 7.2 % Eosinophils (%) (Auto) 3.6 % Basophils (%) (Auto) 0.6 % Neutrophils # (Auto) 2.8 X10'3 Lymphocytes # (Auto) 1.5 X10'3 Monocytes # (Auto) 0.4 X10'3 Eosinophils # (Auto) 0.2 X10'3 Basophils # (Auto) 0.0 X10'3 CBC Comment Sodium Level 141 MMOL/L Potassium Level 4.8 MMOL/L Chloride Level 106 MMOL/L Carbon Dioxide Level 28.7 MMOL/L Anion Gap 6 Blood Urea Nitrogen 11 MG/DL Creatinine 0.71 MG/DL Estimated GFR/1.73 m2 80 ML/MIN BUN/Creatinine Ratio 15.5 Glucose Level 91 MG/DL Calcium Level 8.6 MG/DL Magnesium Level 1.8 MG/DL Total Bilirubin 0.6 MG/DL Aspartate Amino Transf (AST/SGOT) 24 U/L Alanine Aminotransferase (ALT/SGPT) 19 U/L Alkaline Phosphatase 91 IU/L Total Protein 7.5 G/DL Albumin 3.2 G/DL Globulin 4.3 G/DL Albumin/Globulin Ratio 0.7 Thyroid Stimulating Hormone (TSH) 13.91 ulU/ml Chemistry Comments Discharge medications Move slowly when changing positions; avoid sudden head movements or bending over quickly Use support when walking if you feel unsteady Avoid driving until dizziness improves Keep yourself well hydrated Please note your lipid profile was deranged, we have increased your Lipitor dosage to 80 mg Please get a repeat lipid profile done in the next 2-3 months Please schedule a repeat CBC, CMP in the next one week Please note your TSH was elevated; we are discharging you with an increased dose of your levothyroxine at 175 mcg Please recheck your thyroid profile in the next 6-8 weeks Please follow up with your primary care doctor Please return to ED in case of dizziness, shortness of breath or palpitations Discharge instructions New Medications: Atorvastatin Calcium 80 Mg Tablet Levothyroxine Sodium 125 Mcg Tablet Take levothyroxine 175mcg po before breakfast on empty stomach Meclizine HCl 12.5 Mg Tablet Ondansetron HCl 4 Mg Tablet Continued Medications: Amlodipine Besylate 5 Mg Tablet Lisinopril/Hydrochlorothiazide (Lisinopril-Hctz 20-12.5 mg Tab) 20 Mg-12.5 Mg Tablet Metoprolol Tartrate* 50 Mg Tablet Discontinued Medications: Atorvastatin Calcium 20 Mg Tablet Levothyroxine Sodium 125 Mcg Tablet The patient felt ready to be discharged and was medically cleared to be discharged on 06/28/2025 The patient was seen and evaluated on day of discharge. Time spent on discharge 35 minutes *Problems/Diagnosis: (1) Dizziness Status: Acute (2) Hypokalemia Status: Acute (3) Hypertension Status: Acute (4) Vertigo Status: Acute Total Time Spent on D/C: > 30 Minutes Date of Service: Jun 28, 2025 Billing Provider: ROMULO DOW DO Problem Qualifiers (1) Hypertension: Hypertension type: unspecified Qualified Codes: I10 - Essential (primary) hypertension SOILA PATEL, RES Jun 28, 2025 14:08 GEMINI PALENCIA, RES Jun 28, 2025 14:49 ROMULO DOW DO Jun 28, 2025 15:38
[2025-06-28] MEDS ORDERED: MECL-226 PO (14:45)
[2025-06-28] MEDS ORDERED: ATOR-2 PO (14:45)
[2025-06-28] MEDS ORDERED: ONDA-103 PO (14:45)
[2025-06-28] MEDS ORDERED: LEVO125T8 PO (14:45)
== END 2025-06-28 16:51 | disposition home or self-care (01) | DRG 305 ==
LOC: ER 10:10 → ED HOLD 12:29 → ORTHO 4S 20:01
PROVIDERS: ADMIT Family Medicine; ATTEND Family Medicine
PROC: B3251ZZ Computerized Tomography (CT Scan) of Bilateral Common Carotid Arteries using Low Osmolar Contrast (ICD-10-PCS; principal; 2025-06-27)
PROC: B32G1ZZ Computerized Tomography (CT Scan) of Bilateral Vertebral Arteries using Low Osmolar Contrast (ICD-10-PCS; 2025-06-27)
PROC: B32R1ZZ Computerized Tomography (CT Scan) of Intracranial Arteries using Low Osmolar Contrast (ICD-10-PCS; 2025-06-27)
PROC: B3281ZZ Computerized Tomography (CT Scan) of Bilateral Internal Carotid Arteries using Low Osmolar Contrast (ICD-10-PCS; 2025-06-27)
DX: I16.1 Hypertensive emergency (principal); E87.6 Hypokalemia; I10 Essential (primary) hypertension; H81.13 Benign paroxysmal vertigo, bilateral; E89.0 Postprocedural hypothyroidism; E78.5 Hyperlipidemia, unspecified; F32.A Depression, unspecified; Z60.2 Problems related to living alone; Z88.0 Allergy status to penicillin; Z80.0 Family history of malignant neoplasm of digestive organs; Z79.899 Other long term (current) drug therapy
CPT/HCPCS: 36415; 70450; 70496; 70498; 70551; 71045; 80048; 80053; 80061; 81003; 83036; 83735; 83880; 84100; 84443; 84484; 85025; 85610; 85730; 93005; 93306; 96365; 97116; 97161; 97530; 99285; A4615; A6258; G0378; J1650; J3360; J3480; J7030; J8597; Q9967